=== PATIENT | male | born 2000 | race Caucasian/White ===

== ENCOUNTER 2019-03-03 09:42 | Emergency (ER) | payer OTHER, SELFPAY ==
[2019-03-03 09:44] VITALS: BP 135/95; PULSE 72; RESP 16; TEMP 36.7; O2SAT 100; BMI 23.9
--- NOTE | 2019-03-03 10:03 | ED.VIS.GEN ---
History of Present Illness Chief Complaint: Sore Throat Informant: Patient Onset: Days Narrative: ED with sore throat for the last several days. This morning he woke up with increased pain and feels as though he is having difficulty swallowing now. He has been taking ibuprofen and using throat lozenges without relief. He was at the [facility] this morning with a swab 10 and was told his sore throat was viral in nature. He denies any fever, chills, nasal congestion, cough, difficulty breathing. Past Medical History - Allergies and Home Meds Allergies/Adverse Reactions: Allergies tree nut Allergy (Verified 03/03/19 09:43) Anaphylaxis TREE POLLEN Allergy (Uncoded 03/03/19 09:43) Other Primary Care Physician: [facility] Doctor,Out of [Primary Care Provider] - Smoking Status: Never smoker Review of Systems General: Denies: Chills, Fever, Sweats Eyes: Denies: Visual changes - bilaterally, Diplopia ENT: Reports: Sore throat. Denies: Rhinorrhea Cardiovascular: Denies: Chest pain, Palpitations Respiratory: Denies: Dyspnea, Cough, Dyspnea on exertion Gastrointestinal: Denies: Abdominal pain, Nausea, Vomiting, Diarrhea, Melena, Hematochezia Genitourinary: Denies: Dysuria, Hematuria, Frequency Musculoskeletal: Denies: Back pain, Extremity Pain Skin: Denies: Rash, Wounds Neurological: Denies: Headache, Weakness, Numbness Physical Exam Vital Signs/Narrative: Vital Signs Temp Pulse Resp BP Pulse Ox 03/03/19 09:44 98.0 F 72 16 135/95 H 100 General: Well nourished, Well developed, No Acute Distress Head: Normocephalic, Atraumatic Eyes: Perrl, EOMI ENT: Moist mucous membranes, No rhinorrhea, TM's clear, - - 1+ tonsillar edema bilaterally. Pharyngeal erythema. No uvular deviation, trismus, or muffled voice. Airway is patent. Neck: Supple, Nontender Cardiovascular: Regular rate, Regular rhythm, No murmurs Respiratory: No distress, CTA bilaterally, Chest nontender Abdomen: Soft, Nontender, Nondistended, Normal bowel sounds Back: Nontender, Normal Inspection Extremities: Nontender, No edema Skin: Normal color, No rash Neurological: Alert, Oriented x3, Cranial nerves II-XII grossly intact, Normal Strength, Normal Sensation Psychological: Normal affect, Normal Mood Diagnostic/Tx/Re-eval - Medical Decision Making Patient presents with sore throat several days. [facility] and was swabbed. This was negative for strep pharyngitis. He was told the etiology of the sore throat was viral. He feels like it is getting worse and contacted his PCP who advised he be seen in the ER. I do not feel re-swabbing is necessary. Patient was given a dose of Decadron here. He will be discharged home with several days of prednisone. He was advised to start tomorrow. He was educated on signs/symptoms to return. He was provided discharge instructions to plan Impression: Viral pharyngitis Disposition: Home stable ED Disposition - Plan for ED Patient: Disposition: Home or Assisted Living Diagnosis: Pharyngitis Instructions: PHARYNGITIS, Viral Prescriptions: predniSONE tablet 20 mg PO DAILY 3 Days #3 tab Prescription Printed Referrals: [facility] Doctor,Out of [Primary Care Provider] - Additional Instructions: You received a dose of steroids here. Start prescription tomorrow.
[2019-03-03] MEDS: dexAMETHasone 4 MG Tablet PO (10:30)
[2019-03-03 11:28] VITALS: BP 137/91; PULSE 52; RESP 14; O2SAT 99
== END 2019-03-03 11:30 | disposition home or self-care (01) ==
PROVIDERS: Emergency Provider Physician Assistant
DX: J02.8 Acute pharyngitis due to other specified organisms (principal); B97.89 Other viral agents as the cause of diseases classified elsewhere
CPT/HCPCS: 99283

== ENCOUNTER 2019-08-05 02:13 | Emergency (ER) | payer OTHER, SELFPAY ==
[2019-08-05 02:14] VITALS: BP 166/104; PULSE 54; RESP 18; TEMP 37.1; O2SAT 97; BMI 25.6
--- NOTE | 2019-08-05 02:34 | CT_ITS ---
STUDY: CT BRAIN WITHOUT CONTRAST REASON FOR EXAM: Male, 19 years old. TRAUMA. RADIATION DOSAGE (If Supplied By Facility): CTDIvol = ( 44.99 ) mGy, DLP = ( ) mGycm TECHNIQUE: Transaxial CT imaging of the brain was performed without administration of intravenous contrast material. Individualized dose optimization techniques were used for this CT. COMPARISON: No relevant priors. FINDINGS: Normal soft tissue structures. Normal calvarium. Normal size ventricles and extra-axial spaces for the patient''s age. There are typical, somewhat amorphous calcifications of the choroid plexi in the lateral ventricles. 7.5 mm rounded, rim calcifications are noted in the fourth ventricle, also presumed to be in the choroid plexus. Normal white matter tracts of the cerebral hemispheres. Normal basal ganglia and thalami. Normal brainstem. Normal cerebellum. There is no intracranial hemorrhage. There are no findings of an acute ischemic infarction. Fluid levels noted in the left maxillary sinus. Rounded, well-defined 1 cm soft tissue density consistent with a polyp or mucous inclusion cyst noted in the anterior wall right maxillary antrum. CT/Brain/Head without Contrast IMPRESSION: 1. No acute intracranial injury. 2. Acute left maxillary sinusitis. 1 cm polyp or mucous occlusion cyst in the anterior right maxillary antrum. Electronically Signed: Jon Villalobos MD at 3:36 EST , Service support ,
--- NOTE | 2019-08-05 03:59 | ED.DCSUM_ITS ---
- ER Visit Summary Date of Service: 08/05/19 Chief Complaint: Head injury History of Present Illness: The patient is a 19 M who was drinking alcohol this evening. He slipped on ice in his head. He does not remember the event. He went to bed and then woke up with headache. He had a Band-Aid on his left e yebrow and vaguely remembered falling. No other associated symptoms. No blood thinners. No other injuries. Physical Examination: Afebrile and vital signs unremarkable. He has a 1 cm linear laceration over his left lateral eyebrow with very mild oozing of blood. HEENT exam otherwise unremarkable. Neck is nontender. Heart regular. Lungs clear. Skin appears normal otherwise. Cranial nerves grossly intact. Normal strength sensation. Normal cerebellar testing. Test Results: CT brain showed nothing acute, but he does have left maxillary sinusitis. Emergency Department Course and Treatment: Because of the patient's amnesia and persistent headache, CT was ordered. This showed sinusitis but nothing acute. Patient had a concussion. He was given concussion precautions. He was given a note for work, sports, and school. Concussion precautions until cleared by his hop strainer or physician. Wound was cleaned and explored. No foreign bodies or other abnormal findings. This was cleansed and closed with 2 simple interrupted sutures. Patient was given wound care instructions. Follow-up in 5 to 7 days. Return sooner for any complications. Treated with ibuprofen. Treatment Plan: As above Disposition: Discharge Impression: 1. Concussion 2. Laceration left eyebrow 1 cm This note was generated with [employer] dictation software. It may contain incorrect words, spelling, and punctuation that were not noted in review of the chart prior to signing ED Disposition - Plan for ED Patient: Referrals: Felix Roman [Primary Care Provider] -
--- NOTE | 2019-08-05 04:02 | ED.DEP ---
ED Disposition - Plan for ED Patient: Instructions: LACERATION, All, CONCUSSION, No Wake Up Referrals: Felix Roman [Primary Care Provider] -
[2019-08-05 04:13] VITALS: BP 127/84; PULSE 56; RESP 20; O2SAT 96
[2019-08-05] MEDS: Ibuprofen 200 MG Tablet 400 MG PO (04:14)
== END 2019-08-05 04:24 | disposition home or self-care (01) ==
PROVIDERS: Emergency Provider Emergency Medicine
DX: S06.0X0A Concussion without loss of consciousness, initial encounter (principal); S01.112A Laceration without foreign body of left eyelid and periocular area, initial encounter; J01.00 Acute maxillary sinusitis, unspecified; W00.0XXA Fall on same level due to ice and snow, initial encounter; Y93.89 Activity, other specified; Y92.89 Other specified places as the place of occurrence of the external cause; Y99.8 Other external cause status
CPT/HCPCS: 12011; 70450; 99283

== ENCOUNTER 2020-11-14 18:07 | Emergency (ER) | payer OTHER, SELFPAY ==
[2020-11-14 18:08] VITALS: BP 140/88; PULSE 79; RESP 15; TEMP 36; O2SAT 99; BMI 26.4
--- NOTE | 2020-11-14 18:35 | EX.ED.DYSGE1 ---
HPI History of Present Illness Chief Complaint: Dizziness Detail of Chief Complaint: Patient presents with dizziness that started several hours ago. Informant: patient Narrative Narrative: Patient presents to the emergency department after being involved in a baseball game this afternoon where he was pitching. Patient states that he felt like he pulled his hamstring and came out of the game. He went into the dog out and while in the dog began feeling dizzy and nauseated. Patient states that he has not been feeling well since that time. He feels shaky. Patient states he did not feel well this morning when he first woke up but thought he was just nervous. Patient states that he had one loose stool today. He denies fever. He is been vaccinated against Covid with both vaccines. He denies any sick contacts. Prior similar symptoms: No PFSH PFSH Medical History (Updated 11/14/20 @ 21:[address] Erik Rowland, ) Anxiety Hypertension Home Medications fluoxetine 20 mg PO DAILY 03/03/19 [History Last Taken Unknown] amlodipine [Norvasc] 5 mg PO DAILY 11/14/20 [History Last Taken Unknown] ondansetron 4 mg PO Q8H PRN PRN #10 tab 11/14/20 [Rx Last Taken Unknown] Allergy/AdvReac Type Severity Reaction Status Date / Time tree nut Allergy Anaphylaxis Verified 11/14/20 18:10 TREE POLLEN Allergy Other Uncoded 11/14/20 18:10 Surgical History (Updated 11/14/20 @ 19:20 by Xochitl Toussaint) History of hip surgery Social History Smoking Status: Never smoker [facility] ED Constitutional Constitutional ED: Reports chills, sweats and other Details: Lightheaded Eyes Eyes: Denies acute decrease in peripheral vision, change in vision, double vision or loss of vision ENT ENT ED: Reports none; Denies ear pain, lip swelling, loss taste/smell, neck pain, otalgia or sore throat Cardiovascular Cardiovascular: Reports none; Denies abdominal pain, chest pain with activity, leg edema, lightheadedness, palpitations, rapid heart rate or syncope Respiratory/Chest Respiratory/Chest: Reports none; Denies change in mental status, dry cough, dyspnea, hemoptysis, shortness of breath at rest or shortness of breath with exertion Gastrointestinal Gastrointestinal: Reports abdominal pain and nausea Genitourinary Genitourinary ED: Reports none; Denies abdominal discomfort, anuria, dysuria, genital pain or polyuria Musculoskeletal Musculoskeletal: Reports none; Denies arthralgias, back pain, difficulty walking, extremity pain, muscle weakness or myalgias Integumentary Reports none; Denies abscess or rash Neurologic Neurologic: Reports none; Denies abnormal gait, confusion, focal weakness, frequent falls, headache(s), loss of vision, numbness, paresthesias, radicular pain, vertigo or weakness Psychiatric Psychiatric: Reports systems reviewed and no addt'l complaints, except as documented and none; Denies behavioral changes, confusion, difficulty concentrating, hallucinations, suicidal ideation, tactile hallucinations or visual hallucinations Endocrine Endocrinology: Denies none, cold intolerance, excessive sweating, fatigue or heat intolerance Hematologic/Lymphatic Hematologic/Lymphatic: Reports none; Denies anemia, easy bleeding or easy bruising Allergic/Immunologic Allergic/Immunologic ED: Denies as per HPI, none, lip swelling, mouth swelling, throat swelling, tongue swelling or hives EXAM Physical Exam Const Vital Signs: 11/14/20 18:08 11/14/20 19:18 11/14/20 20:40 Temperature 96.8 F L Temperature Source Temporal Pulse Rate 79 86 Respiratory Rate 15 14 Respiratory Effort Normal Non-Labored Blood Pressure 140/88 H 137/77 H Blood Pressure Mean 105 97 Pulse Ox 99 99 Oxygen Delivery Method Room Air Room Air Positive well nourished and well developed General Appearance ED: well developed and NAD HEENT Reports TM's clear and moist mucous membranes normocephalic and atraumatic; Negative for trauma or tenderness Tympanic Membrane ED: Yes TM's clear Eyes PERRL and EOMs intact bilaterally General Eye ED: Negative for pale conjunctiva or scleral icterus Neck no lymphadenopathy, supple and no JVD General: Negative for tenderness Chest Wall inspection of chest normal and palpation of chest normal Chest: Negative for tenderness Resp normal respiratory effort and clear to auscultation bilaterally Effort and Inspection: Negative for respiratory distress or pain with movement Auscultation: Negative for rhonchi, wheezes or diminished lung sounds Cardio regular rate, regular rhythm, S1 normal heart sound, S2 normal heart sound and no murmurs Peripheral Pulses: pulses 2+ throughout GI normal to inspection, nondistended, normoactive bowel sounds, soft to palpation, non-tender, non-distended and no masses Palpation: soft Back/Spine no CVA tenderness and no thoracic nor lumbar tenderness Extremity normal to inspection General Extremety ED: Negative for edema General Extremity: Negative for edema Neuro oriented x3, CN's II-XII intact bilaterally, no sensory deficits noted and gait normal Sensorium / Orientation: awake, alert, oriented to person, oriented to place and oriented to time Motor Exam: strength 5/5 throughout and strength abnormal Psych mental status grossly normal Skin no rashes or lesions noted and no wounds MDM MDM MDM Narrative Medical decision making narrative: Patient feeling improved after treatment in the department. On repeat examination at 21:08 patient has no abdominal discomfort on exam. He was able to tolerate p.o. intake. He has had no further vomiting. Lab Data Attestation: I reviewed the patient's lab results. Labs: Laboratory Results - last 24 hr 11/14/20 11/14/20 19:17 19:17 WBC 12.2 H RBC 5.20 Hgb 15.8 Hct 46.2 MCV 88.8 MCH 30.4 MCHC 34.2 RDW Std Deviation 40.3 RDW Coeff of Miracle 12.3 Plt Count 208 MPV 10.3 Immature Gran % (Auto) 0.400 Neut % (Auto) 91.1 H Lymph % (Auto) 2.7 L [place] % (Auto) 5.3 Eos % (Auto) 0.3 Baso % (Auto) 0.2 Absolute Neuts (auto) 11.1 H Absolute Lymphs (auto) 0.33 L Nucleated RBC % 0 Differential Comment SEE COMMENT Platelet Estimate ADEQUATE RBC Morphology N CHROM Anisocytosis RARE Sodium 138 Potassium 3.9 Chloride 107 Carbon Dioxide 24.0 Anion Gap 7 BUN 18 Creatinine 0.96 Estim Creat Clear Calc 136.40 Est GFR (MDRD) Af Amer 125 Est GFR (MDRD) Non-Af 103 BUN/Creatinine Ratio 18.7 Glucose 116 H Calcium 8.8 Discharge Plan Triage Chief Complaint: Dizziness ED Provider: Erik Rowland Dx/Rx/DC Orders Clinical Impression: Abdominal pain of unknown etiology, Viral syndrome Instructions: ED Dizziness, Uncertain Cause, ED Viral Syndrome (Adult), ED Abdominal Pain Unknown Cause ... Prescriptions: New ondansetron [ondansetron] 4 MG tablet 4 mg PO Q8H PRN PRN (Reason: Nausea) Qty: 10 RF: 0 No Action fluoxetine 20 MG capsule 20 mg PO DAILY RF: 0 amlodipine [Norvasc] 5 mg tablet 5 mg PO DAILY RF: 0 Primary Care Provider: Felix Roman Referrals: Felix Roman [place] [Primary Care Provider] - 3-5 Days Disposition Disposition: Home, self care
[2020-11-14] MEDS: 0.9% Normal Saline 1,000 ML 1000 ML IV (19:23)
[2020-11-14] MEDS: Ondansetron 4 MG/2 ML Vial IV ×2 (19:24→21:24)
[2020-11-14 19:31] LABS: Absolute Lymphocyte Count 0.33 X10^3/uL (0.83-4.51); Absolute Neutrophil Count 11.1 X10^3/uL (2.0-7.7); Basophil# 0.03 X10^3/uL; Basophil% 0.2 % (0-1); Eosinophil# 0.04 X10^3/uL; Eosinophils% 0.3 % (0-5); Hematocrit 46.2 % (40-54); Hemoglobin 15.8 g/dL (13.0-16.5); Lymphocyte # 0.33 X10^3/ul (0.83-4.51); Lymphocyte % 2.7 % (19-41); Mean Corp Hgb Conc 34.2 g/dL (32-36); Mean Corpuscular Hgb 30.4 pg (27.0-32.0); Mean Corpuscular Volume 88.8 fL (80-94); Mean Platelet Vol. 10.3 fl (6.2-12.0); Monocyte# 0.65 X10^3/uL; Monocyte% 5.3 % (0-10); NRBC Flagged by Analyzer 0 % (0-5); Neutrophil # 11.05 X10^3/uL (2.7-7.7); Neutrophil % 91.1 % (47-70); POSITIVE DIFFERENTIAL YES; Platelet Count 208 K/mm3 (150-450); RBC Distribution Width CV 12.3 % (11.6-14.6); RBC Distribution Width SD 40.3 fl (35.1-43.9); White Blood Count 12.2 K/mm3 (4.4-11.0)
[2020-11-14 19:38] LABS: Differential Indicated SCAN CRITERIA MET
[2020-11-14 19:50] LABS: Anion Gap 7 (5-15); BUN 18 mg/dL (7-18); BUN/Creat Ratio 18.7 RATIO (10-20); Calcium,Total 8.8 mg/dL (8.5-10.1); Chloride 107 mmol/L (98-107); Creatinine, Serum 0.96 mg/dL (0.70-1.30); EST Glomerular Filtration Rate 103 mL/min (>60); Est Glom Filt Rate - Afr Amer 125 mL/min (>60); Glucose 116 mg/dL (74-106); Potassium 3.9 mmol/L (3.5-5.1); Sodium Level 138 mmol/L (136-145)
[2020-11-14 19:51] LABS: Platelet Estimate ADEQUATE (ADEQ); Red Cell Morphology N CHROM NORMAL (NORM C&C)
[2020-11-14 19:52] LABS: Anisocytosis RARE
[2020-11-14 20:40] VITALS: BP 137/77; PULSE 86; RESP 14; O2SAT 99
== END 2020-11-14 21:28 | disposition home or self-care (01) ==
PROVIDERS: Emergency Provider Emergency Medicine
DX: B34.9 Viral infection, unspecified (principal); R10.9 Unspecified abdominal pain; I10 Essential (primary) hypertension; Z79.899 Other long term (current) drug therapy
CPT/HCPCS: 80048; 85025; 96361; 96374; 96375; 99282; J7030; A4216; J2405